=== PATIENT | female | born 1990 | race Caucasian/White ===

== ENCOUNTER 2022-03-16 12:49 | Emergency (ER) | payer OTHER, SELFPAY ==
--- NOTE | ~2022-03-16 | CT_ITS ---
EXAMINATION: CT cervical spine wo con DATE: 03/16/2022 13:43 INDICATION: Neck pain. TECHNIQUE: Computed tomography (CT) of the cervical spine was performed without intravenous contrast. Automated exposure control and iterative reconstruction technique were employed. The dose-length pro duct was 370.32 mGy-cm. COMPARISON: None FINDINGS: Bone alignment is normal. Vertebral body heights and intervertebral disc heights are normal . At C7-T1, there is mild bilateral facet joint osteoarthritis. No neural foraminal stenosis or centr al canal stenosis. IMPRESSION: 1. Mild bilateral facet joint osteoarthritis at C7-T1. Reviewed, dictated and finalized at location A.
--- NOTE | ~2022-03-16 | CT_ITS ---
EXAMINATION: CT brain & sinus wo con DATE: 03/16/2022 13:43 INDICATION: Headache. TECHNIQUE: Computed tomography (CT) of the head and sinuses was performed without intravenous contras t. The mA was adjusted according to patient size. Iterative reconstruction technique was employed. Th e dose-length product was 681.00 mGy-cm. COMPARISON: None FINDINGS: HEAD CT: There is no intracranial hemorrhage, acute infarction, or abnormal intracranial mass lesion. The ventricles are normal in size. The orbits are normal. The mastoid air cells are normal. SINUSES CT: The frontal sinuses are clear. There is a small osteoma in anterior left ethmoid sinus. T here is mild mucosal thickening in right anterior ethmoid sinus. The sphenoid sinuses are clear. Ther e is mild mucosal thickening in left maxillary sinus. Right maxillary sinus is clear. There is leftwa rd deviation of the nasal septum. There are bilateral Hasmukh cells. The ostiomeatal units are patent. There are carious lesions of teeth 1, 4, 5, and 11. IMPRESSION: 1. Normal brain. 2. Mild mucosal thickening in the paranasal sinuses. 3. Leftward deviation of the nasal septum. 4. Dental disease. Reviewed, dictated and finalized at location A.
[2022-03-16 12:59] VITALS: BP 140/95; PULSE 126; RESP 18; TEMP 36.7; O2SAT 100
--- NOTE | 2022-03-16 13:20 | ED.HEATRA ---
HPI - Head Injury General Chief complaint: Upper Respiratory Infection Stated complaint: sinus infection Time Seen by Provider: 03/16/22 12:53 History of Present Illness HPI Narrative: 32-year-old female presents the emergency room for evaluation of a headache. States that she was seen at her primary care's office and was diagnosed with a sinus infection. Patient denies sinus congestion postnasal drip, facial pain. Has a history of migraines, uses sumatriptan as her abortive drug. Today she says her head ache initiates from the back of her skull on the left side radiates into her neck, pain is worse when she moves her head from side to side. Increased pain in her neck with flexion. States that she had a fever yesterday. Associated with photo phobia and phonophobia Related Data Allergies Allergy/AdvReac Type Severity Reaction Status Date / Time ciprofloxacin Allergy Unknown RASH, N/V Verified 11/16/17 14:13 tramadol Allergy Unknown RASH Verified 11/16/17 14:13 Review of Systems Review of Systems: CONSTITUTIONAL: Denies fever, chills, or sweats. EYES: Denies visual changes, redness, or discharge. ENT: Denies rhinorrhea, congestion, sore throat, or otalgia. CARDIOVASCULAR: Denies chest pain, palpitations, or edema. RESPIRATORY: Denies cough or dyspnea. GASTROINTESTINAL: Denies abdominal pain, nausea, vomiting, or diarrhea. GENITOURINARY: Denies dysuria or hematuria. SKIN: Denies rash or itching. MUSCULOSKELETAL: Reports neck pain NEUROLOGIC: Reports headache PSYCHIATRIC: Denies anxiety or depression. Exam Narrative: GENERAL: Well-appearing, well-nourished, no physical limitations, and in no acute distress. HEAD: Normocephalic, atraumatic. EYES: Conjunctivae normal, PERRLA and EOMI. ENT: External nose normal, Nares clear, no rhinorrhea or epistaxis. Mucous membranes moist. Oropharynx without tonsillar hypertrophy exudate or other lesions. External ears normal, bilateral TMs normal bilaterally NECK: Supple. No meningeal signs. No adenopathy or masses. CHEST: Clear to auscultation. No respiratory distress. No wheezes rales or rhonchi. No tenderness. HEART: Regular rate and rhythm. No murmur heard. Normal peripheral pulses. BACK: No CVA tenderness; No cervical/thoracic/lumbar tenderness, step-offs, bony abnormality; FROM EXTREMITIES: Normal range of motion. No edema. No clubbing or cyanosis SKIN: Warm, dry, no rash. No noted wounds NEURO: No focal deficits. Alert and oriented x3. MAEW. CN's II-XI intact bilaterally, normal gait. Negative Kernig sign, negative Brudzinski sign PSYCH: Cooperative. Normal mood and affect. Course Vital Signs Vital signs: Vital Signs Temperature 36.7 C 03/16/22 12:59 Pulse Rate 126 H 03/16/22 12:59 Respiratory Rate 18 03/16/22 12:59 Blood Pressure 140/95 H 03/16/22 12:59 Pulse Oximetry 100 03/16/22 12:59 Oxygen Delivery Room Air 03/16/22 12:59 Temperature 36.7 C 03/16/22 12:59 Pulse Rate 126 H 03/16/22 12:59 Respiratory Rate 18 03/16/22 12:59 Blood Pressure 140/95 H 03/16/22 12:59 Pulse Oximetry 100 03/16/22 12:59 Oxygen Delivery Room Air 03/16/22 12:59 MDM - Head Injury MDM Narrative Medical decision making narrative: 32-year-old female presented emergency room with complaints of a headache. Headache is most consistent with benign headache either tension or migraine. Patient stated that she did have vision changes in her left eye from time to time and ringing in the ears, this could likely be pseudotumor as well. There were no focal neurological findings, meningismus. Sed rate was negative so unlikely temporal arteritis and showed no findings concerning for tumor or an abscess. Pain was not controlled with a headache cocktail, so Dilaudid was given. Patient told to follow-up with neurology and ophthalmology. Lab Data Result diagrams: 03/16/22 13:53 03/16/22 13:52 Labs: Lab Results 03/16/22 03/16/22 Range/Units
[2022-03-16] MEDS: diphenhydrAMINE HCl INJ 50 MG/ML VIAL 25 MG IV PUSH (13:54)
[2022-03-16] MEDS: SODIUM CHLORIDE 0.9% IV 1,000 ML 999 ML IV CONT (13:54)
[2022-03-16] MEDS: KETOROLAC 30 MG/ML VIAL (*BKC) IV PUSH (13:54)
[2022-03-16] MEDS: METOCLOPRAMIDE HCL INJ 10 MG/2 ML VIAL IV PUSH (14:01)
[2022-03-16 14:08] LABS: Basophils Percent Auto 0.4 % (0.2-1.2); Eosinophils Absolute Auto 0.1 K/mm3 (0-0.3); Eosinophils Percent Auto 0.5 % (0-4.4); Hematocrit 37.5 % (37.0-47.0); Hemoglobin 13.1 g/dL (12.0-15.0); Immature Granulocyte Absolute 0.04 K/mm3 (0.00-0.031); Immature Granulocyte Percent A 0.4 % (0-0.5); Lymphocytes Absolute Auto 2.65 K/mm3 (0.9-3.2); Lymphocytes Percent Auto 28.7 % (18.3-44.2); Mean Corpuscular HGB Conc 34.9 g/dl (32-36); Mean Corpuscular Hemoglobin 32.2 pg (26-34); Mean Corpuscular Volume 92.1 fl (80-100); Monocytes Absolute Auto 0.5 K/mm3 (0.1-0.6); Monocytes Percent Auto 5.9 % (2.6-8.5); Neutrophils Absolute Auto 5.9 K/mm3 (1.3-6.7); Neutrophils Percent Auto 64.1 % (45.5-73.1); Platelet Count Result 305 k/mm3 (150-375); Red Blood Count 4.07 M/mm3 (4.2-5.4); Red Cell Distribution Width 11.7 % (11.5-14.5); White Blood Count 9.2 K/mm3 (4.5-10.0)
[2022-03-16 14:18] LABS: Alanine Aminotransferase 22 U/L (6-35); Albumin Level 4.4 g/dL (3.5-5.1); Alkaline Phosphatase 48 U/L (38-126); Anion Gap 8 mmol/L (8-16); Aspartate Amino Transferase 21 U/L (14-36); Bilirubin,Total 0.4 mg/dL (0.2-1.3); Blood Urea Nitrogen 11 mg/dL (7-17); Calcium 8.8 mg/dL (8.4-10.2); Carbon Dioxide 21 mmol/L (22-30); Chloride 108 mmol/L (98-107); Estimated CRCL calculation 102 ml/min; Estimated Glomerular Filt Rate > 60; Glucose 100 mg/dL (65-110); Potassium 3.5 mmol/L (3.4-5.0); Sodium 137 mmol/L (137-145)
[2022-03-16] MEDS: methocarbamoL 500 MG TABLET PO (15:01)
[2022-03-16 15:15] LABS: Erythrocyte Sedimentation Rate 13 mm/hr (0-20)
[2022-03-16] MEDS: HYDROmorphone HCL INJ (*CRX) 1 MG/ML SYR 0.5 MG IV PUSH (15:47)
== END 2022-03-16 16:52 | disposition home or self-care (01) ==
PROVIDERS: Emergency Provider Nurse Practitioner Family; PCP Nurse Practitioner Family
DX: R51.9 Headache, unspecified (principal); J32.9 Chronic sinusitis, unspecified
CPT/HCPCS: 36415; 70450; 70486; 72125; 80053; 85025; 85652; 96361; 96374; 96375; 99284; A9270; J1170; J1200; J1885; J2765; J7030

== ENCOUNTER 2022-03-17 16:39 | Emergency (ER) | payer OTHER, SELFPAY ==
[2022-03-17 17:07] VITALS: BP 127/83; PULSE 145; RESP 18; TEMP 36.8; O2SAT 100
--- NOTE | 2022-03-17 17:20 | ED.HA ---
HPI - Headache General Chief Complaint: Headache Stated Complaint: STEPHENSON Time Seen by Provider: 03/17/22 17:14 History of Present Illness HPI Narrative: 32-year-old female presents to the emergency room for an ongoing headache. Patient states the headache is on the left side of back of the head, and is worse when she tries to move her neck. Patient denies having a fever. Endorses occasional blurred vision and tinnitus on the left side. Patient states that headache has been gone ongoing for several days. Patient states that she initially saw her primary care provider and was told that she had sinus infection. She presented yesterday to the emergency room with similar symptoms. CT scan was obtained and showed no evidence of a sinus infection. CBC and CMP were unremarkable at that time to sed rate was negative. Headache cocktail was given which patient did not respond, but Dilaudid was given patient's pain began to resolve. Patient denies any nausea or vomiting. Denies injury or trauma Related Data Home Medications Medication Instructions Recorded Confirmed gabapentin 100 mg capsule 100 mg PO TID 03/17/22 03/17/22 methocarbamol 500 mg tablet 500 mg PO TID PRN Spasms 03/17/22 03/17/22 metoprolol tartrate 100 mg tablet 100 tablet PO BID 03/17/22 03/17/22 metoprolol tartrate 50 mg tablet 100 tablet PO BID 03/17/22 03/17/22 Allergies Allergy/AdvReac Type Severity Reaction Status Date / Time ciprofloxacin Allergy Unknown RASH, N/V Verified 11/16/17 14:13 tramadol Allergy Unknown RASH Verified 11/16/17 14:13 Review of Systems Review of Systems: CONSTITUTIONAL: Denies fever, chills, or sweats. EYES: Reports occasional blurred vision left eye ENT: Reports occasional tinnitus in left ear CARDIOVASCULAR: Denies chest pain, palpitations, or edema. RESPIRATORY: Denies cough or dyspnea. GASTROINTESTINAL: Denies abdominal pain, nausea, vomiting, or diarrhea. GENITOURINARY: Denies dysuria or hematuria. SKIN: Denies rash or itching. MUSCULOSKELETAL: Denies back pain, joint pain, or myalgia. NEUROLOGIC: Reports headache PSYCHIATRIC: Denies anxiety or depression. Exam Narrative: GENERAL: Uncomfortable HEAD: Normocephalic, atraumatic. EYES: Conjunctivae normal, PERRLA and EOMI. ENT: External nose normal, Nares clear, no rhinorrhea or epistaxis. Mucous membranes moist. Oropharynx without tonsillar hypertrophy exudate or other lesions. External ears normal, bilateral TMs normal bilaterally NECK: Supple. No meningeal signs. No adenopathy or masses. CHEST: Clear to auscultation. No respiratory distress. No wheezes rales or rhonchi. No tenderness. HEART: Regular rate and rhythm. No murmur heard. Normal peripheral pulses. EXTREMITIES: Normal range of motion. No edema. No clubbing or cyanosis SKIN: Warm, dry, no rash. No noted wounds NEURO: No focal deficits. Alert and oriented x3. MAEW. CN's II-XI intact bilaterally, normal gait PSYCH: Cooperative. Normal mood and affect. Course Vital Signs Vital signs: Vital Signs Temperature 36.8 C 03/17/22 17:07 Pulse Rate 145 H 03/17/22 17:07 Respiratory Rate 18 03/17/22 17:07 Blood Pressure 127/83 03/17/22 17:07 Pulse Oximetry 100 03/17/22 17:07 Oxygen Delivery Room Air 03/17/22 17:07 Temperature 36.8 C 03/17/22 17:07 Pulse Rate 145 H 03/17/22 17:07 Respiratory Rate 18 03/17/22 17:07 Blood Pressure 127/83 03/17/22 17:07 Pulse Oximetry 100 03/17/22 17:07 Oxygen Delivery Room Air 03/17/22 17:07 MDM - Headache Lab Data Result diagrams: 03/17/22 17:22 03/17/22 17:22 Labs: Lab Results 03/17/22 03/17/22 Range/Units 17:22 17:22 WBC 9.7 (4.5-10.0) K/mm3 RBC 4.34 (4.2-5.4) M/mm3 Hgb 13.8 (12.0-15.0) g/dL Hct 40.1 (37.0-47.0) % MCV 92.4 (80-100) fl MCH 31.8 (26-34) pg MCHC 34.4 (32-36) g/dl RDW 11.7 (11.5-14.5) % Plt Count 370 (150-375) k/mm3 MPV 8.8 (7.4-10.4) fl Immature
[2022-03-17] MEDS: ONDANSETRON INJ 4 MG/2 ML VIAL IV PUSH (17:23)
[2022-03-17] MEDS: HYDROmorphone HCL INJ (*CRX) 1 MG/ML SYR 0.5 MG IV PUSH ×2 (17:24→18:51)
[2022-03-17] MEDS: SODIUM CHLORIDE 0.9% IV 1,000 ML 999 ML IV CONT (17:24)
--- NOTE | 2022-03-17 17:24 | ECG_ITS ---
Measurements Intervals [place] Rate: 84 P: 60 NM: 169 QRS: 34 QRSD: 81 T: 50 QT: 369 QTc: 437 Interpretive Statements SINUS RHYTHM VENTRICULAR PREMATURE COMPLEX BASELINE ARTIFACT- I, II, III, AVR, AVL, AVF, V1-V6 BORDERLINE ECG Electronically Signed On 03-17-2022 19:47:39 CDT by Angel Ibarra D.O.
[2022-03-17 17:33] LABS: Basophils Absolute Auto 0.1 K/mm3 (0.0-0.1); Basophils Percent Auto 0.7 % (0.2-1.2); Eosinophils Absolute Auto 0.2 K/mm3 (0-0.3); Eosinophils Percent Auto 1.6 % (0-4.4); Hematocrit 40.1 % (37.0-47.0); Hemoglobin 13.8 g/dL (12.0-15.0); Immature Granulocyte Absolute 0.04 K/mm3 (0.00-0.031); Immature Granulocyte Percent A 0.4 % (0-0.5); Lymphocytes Absolute Auto 3.84 K/mm3 (0.9-3.2); Lymphocytes Percent Auto 39.5 % (18.3-44.2); Mean Corpuscular HGB Conc 34.4 g/dl (32-36); Mean Corpuscular Hemoglobin 31.8 pg (26-34); Mean Corpuscular Volume 92.4 fl (80-100); Mean Platelet Volume 8.8 fl (7.4-10.4); Monocytes Absolute Auto 0.6 K/mm3 (0.1-0.6); Monocytes Percent Auto 6.5 % (2.6-8.5); Neutrophils Percent Auto 51.3 % (45.5-73.1); Platelet Count Result 370 k/mm3 (150-375); Red Blood Count 4.34 M/mm3 (4.2-5.4); Red Cell Distribution Width 11.7 % (11.5-14.5); White Blood Count 9.7 K/mm3 (4.5-10.0)
[2022-03-17 17:50] LABS: Alanine Aminotransferase 186 U/L (6-35); Albumin Level 4.8 g/dL (3.5-5.1); Alkaline Phosphatase 71 U/L (38-126); Anion Gap 8 mmol/L (8-16); Aspartate Amino Transferase 118 U/L (14-36); Bilirubin,Total 0.6 mg/dL (0.2-1.3); Blood Urea Nitrogen 6 mg/dL (7-17); Calcium 8.8 mg/dL (8.4-10.2); Carbon Dioxide 23 mmol/L (22-30); Chloride 108 mmol/L (98-107); Estimated CRCL calculation 110 ml/min; Estimated Glomerular Filt Rate > 60; Glucose 84 mg/dL (65-110); Potassium 4.1 mmol/L (3.4-5.0); Sodium 139 mmol/L (137-145)
[2022-03-17] MEDS: LORazepam INJ (*CRX) 2 MG/ML VIAL 1 MG IV PUSH (18:52)
[2022-03-17 19:54] VITALS: BP 125/68; PULSE 98; RESP 18; O2SAT 100
== END 2022-03-17 19:56 | disposition home or self-care (01) ==
PROVIDERS: Emergency Provider Nurse Practitioner Family; PCP Nurse Practitioner Family
DX: R51.9 Headache, unspecified (principal)
CPT/HCPCS: 36415; 80053; 85025; 93005; 96361; 96374; 96375; 96376; 99284; J1170; J2060; J2405; J7030